=== PATIENT | female | born 1985 | race Caucasian/White ===

== ENCOUNTER 2017-08-26 13:27 | Inpatient (IN) | payer BC, OTHER ==
[~2017-08-26] VITALS: Ht 162.6 cm; Wt 61.0 kg
[~2017-08-26 13:27] MED LIST: ESCITALOPRAM OXALATE 10 MG TAB (LEXAPRO) PO SCH
[2017-08-26] MEDS ORDERED: DEXT10CA5 PO (13:55)
[2017-08-26] MEDS ORDERED: AMBI5TAB PO (13:55)
[2017-08-26] MEDS ORDERED: ADDE1TAB14 PO ×2 (13:55→16:56)
[2017-08-26] MEDS ORDERED: KLON0.5T PO (13:55)
[2017-08-26] MEDS ORDERED: MAALOX 30 ML SUSP *UDC PO PRN (16:00)
[2017-08-26] MEDS ORDERED: traZODone 50 MG TAB PO PRN (16:00)
[2017-08-26] MEDS ORDERED: MOM 30ML SUSPENSION UDC PO PRN (16:00)
[2017-08-26] MEDS ORDERED: IBUP200T45 PO (17:02)
[2017-08-26] MEDS ORDERED: VITA-113 SL (17:02)
[2017-08-26] MEDS ORDERED: VITMTA PO (17:02)
[2017-08-26] MEDS ORDERED: FERR325T3 PO (17:02)
[2017-08-26] MEDS ORDERED: BACITAB PO (17:02)
[2017-08-26] MEDS ORDERED: VITA200028 PO (17:02)
[2017-08-26] MEDS ORDERED: VITA-122 PO (17:02)
[2017-08-26] MEDS ORDERED: FLUO20CA19 PO (17:03)
[2017-08-26 20:00] VITALS: BP 131/69
[2017-08-26] MEDS ORDERED: zolPIDEM TARTRATE 5 MG TAB PO SCH (21:00)
[2017-08-26] MEDS ORDERED: IBUPROFEN 200 MG TAB PO PRN (21:15)
[2017-08-26] MEDS: clonazePAM 0.5 MG TAB PO SCH (22:10)
[2017-08-27 06:51] VITALS: BP 127/62
[2017-08-27] MEDS: LACTOBACILLUS ACIDOPHILUS CAP (BACID) PO SCH (08:06)
[2017-08-27] MEDS: MULTIVITAMINS/MINERALS THERAP 1 TAB PO SCH (08:07)
[2017-08-27] MEDS: CYANOCOBALAMIN 500 MCG TAB PO SCH (08:07)
[2017-08-27] MEDS: VITAMIN D 1,000 INTERNATIONAL UNITS TABLET PO SCH (08:07)
[2017-08-27] MEDS: clonazePAM 0.5 MG TAB PO SCH (08:07)
[2017-08-27] MEDS: FERROUS SULFATE 325MG TAB PO SCH (08:07)
[2017-08-27] MEDS ORDERED: VITAMIN D 1,000 INTERNATIONAL UNITS TABLET PO SCH ×2 (09:00)
[2017-08-27] MEDS ORDERED: FLUoxetine 20 MG CAP PO SCH (09:00)
[2017-08-27] MEDS: hydrOXYzine 50 MG TAB PO PRN (10:51)
[2017-08-27 20:47] VITALS: BP 115/62
[2017-08-27] MEDS ORDERED: traZODone 50 MG TAB PO SCH (21:00)
[2017-08-27 22:28] LABS: BASO % 0.4 % (0.0-1.0); EOS # 0.1 10^3/uL (0.0-0.50); EOS % 0.7 % (0.0-3.0); IMMATURE GRANULOCYTE % 0.1 % (0-0); LYMPH # 2.7 10^3/uL (1.5-4.5); LYMPH % 35.7 % (24.0-44.0); MEAN CORPUSCULAR HEMOGLOBIN 31.9 pg (27.0-33.0); MEAN CORPUSCULAR HGB CONC 34.4 g/dl (32.0-36.5); MEAN CORPUSCULAR VOLUME 92.7 fl (80.0-96.0); MONO # 0.5 10^3/uL (0.0-0.8); MONO % 6.6 % (0.0-5.0); NEUTROPHILS # 4.3 10^3/uL (1.8-7.7); NEUTROPHILS % 56.5 % (36.0-66.0); PLATELET COUNT, AUTOMATED 309 10^3/uL (150-450); RED CELL DISTRIBUTION WIDTH 12.1 % (11.5-14.5); WHITE BLOOD COUNT 7.6 10^3/uL (4.0-10.0)
[2017-08-27] MEDS: CIPROFLOXACIN 500 MG TAB PO SCH (22:36)
[2017-08-27 22:49] LABS: ALBUMIN 4.1 GM/DL (3.2-5.2); ALBUMIN/GLOBULIN RATIO 1.11 (1.00-1.93); ALKALINE PHOSPHATASE 59 U/L (45-117); ALT/SGPT 24 U/L (12-78); ANION GAP 6 MEQ/L (8-16); AST/SGOT 19 U/L (7-37); BILIRUBIN,TOTAL 0.3 MG/DL (0.2-1.0); BLOOD UREA NITROGEN 9 MG/DL (7-18); CALCIUM LEVEL 8.6 MG/DL (8.5-10.1); CARBON DIOXIDE LEVEL 26 MEQ/L (21-32); CHLORIDE LEVEL 106 MEQ/L (98-107); CREATININE FOR GFR 0.61 MG/DL (0.55-1.02); GLOMERULAR FILTRATION RATE > 60.0 (>60); GLUCOSE, FASTING 96 MG/DL (70-105); SODIUM LEVEL 138 MEQ/L (136-145); TOTAL PROTEIN 7.8 GM/DL (6.4-8.2)
[2017-08-28] MEDS: CIPROFLOXACIN 500 MG TAB PO SCH ×2 (06:07→17:15)
[2017-08-28 06:34] VITALS: BP 111/56
[2017-08-28] MEDS: FERROUS SULFATE 325MG TAB PO SCH (08:20)
[2017-08-28] MEDS: CYANOCOBALAMIN 500 MCG TAB PO SCH (08:20)
[2017-08-28] MEDS: FLUoxetine 10 MG CAP PO SCH (08:20)
[2017-08-28] MEDS: MULTIVITAMINS/MINERALS THERAP 1 TAB PO SCH (08:20)
[2017-08-28] MEDS: VITAMIN D 1,000 INTERNATIONAL UNITS TABLET PO SCH (08:20)
[2017-08-28] MEDS: LACTOBACILLUS ACIDOPHILUS CAP (BACID) PO SCH (08:21)
[2017-08-28] MEDS ORDERED: INFLUENZA QUADRIVALENT PF VACCINE 0.5ML SYRINGE (90686) IM ONE (09:00)
[2017-08-28] MEDS: ACETAMINOPHEN TAB 650MG DOSE (2X325MG) PO PRN ×2 (09:10→22:03)
--- NOTE | 2017-08-28 09:25 | MHHPE ---
DATE OF ADMISSION: 08/26/2017 LEGAL STATUS AT ADMISSION: 9.39 legal status. CHIEF COMPLAINT: "I have been feeling depressed and I have suicidal thoughts." HISTORY OF PRESENT ILLNESS: 32-year-old female with history of attention deficit hyperactivity disorder (ADHD), depression, generalized anxiety disorder, and panic disorder admitted to our unit on a 9.39 legal status. According to the record, the patient was transferred from the [facility] following a suicide attempt by overdose on Klonopin. The patient reported "I need help. I suffer from suicidal thoughts." The patient reports that for the past month, she has not been able to redirect her thoughts. She told her that she wanted to before admission, as she thought she could control thoughts. She also states that she is under a lot of stress, especially at work. She makes comments such as "the two dogs were fighting and my yelled, "can you do anything?" The patient says that she felt very worthless and started to think about overdosing. When I thought about this, I immediately had a sense of peace and I thought about my own and taking the Klonopin was so easy, but she stopped taking the medication and decided to get help. The patient also reports that she feels her curing supervisor bullies her. 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 The patient also reports that for a period of time she stored nortriptyline. She said that her psychiatric warned her of the dangers of the medication in case that she attempted. The patient also admits having other suicidal plans like MVA or to stab herself. During the interview today, the patient reports that she has a constant underlying sense of depression, feeling hopeless, worthless and with low self esteem, but her mood fluctuates and at times the depression gets significantly worse. She feels she has low energy, has problems going to sleep and has tendency to isolate. She reports that she has very high anxiety and worry with circular thoughts and cognitive distortions and also has panic attacks. Describes them as tachycardia, palpitations, shortness of breath, and hyperventilation, sweating and feeling dizzy. She says that at times she has two panic episodes a day. During the interview, there is no evidence of psychotic symptoms. No auditory or visual hallucinations or delusions. PAST MEDICAL HISTORY: Patient denies any acute medical problems. ALLERGIES: No known drug allergies. PAST PSYCHIATRIC HISTORY: Patient reports she has been diagnosed to have recurrent depression, generalized anxiety disorder, panic disorder and attention deficit hyperactivity disorder (ADHD) and has taken Adderall 10 mg by mouth twice a day. She also takes Prozac 20 mg by mouth every morning, Klonopin 0.5 mg by mouth three times a day, and Ambien 5 mg by mouth at bedtime. FAMILY HISTORY: Patient reports that her brother has panic disorder. Her sister and father have depression and her mother has depression and anxiety. 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 SOCIAL HISTORY: Patient was raised by both of her parents. Denies any abuse or neglect, but says that her parents were fighting all the time and there was chaos in the family. The patient reports that she was an anxious child and probably having panic attacks because she remembers her mother helping her to breath through a paper back. She just during the summer of this year and reports her support system is mostly her . She says that she has significant problems at her job, which is a source of her depression and anxiety. PSYCHIATRIC REVIEW OF SYSTEMS: BIPOLAR DISORDER/KALEB: No evidence of distractibility, grandiosity, flight of ideas or pressured speech. SUBSTANCE ABUSE: Negative to CAGE questionnaire. SOMATIZATION DISORDER: Screening for pain, conversion, gastrointestinal (GI) and sexual symptoms is negative. EATING DISORDER: Screening for dieting, use of laxatives, eating in binges is negative. COGNITIVE DISORDER: Screening for memory, orientation, and general information is negative for cognitive disorder. PSYCHOTIC DISORDER: No evidence of delusions, paranoia, grandiosity, christianity preoccupation, no hallucinations. No looseness of associations. PHYSICAL EXAMINATION: As per physician's temporary administrative assistant. Labs at admission were not done since the patient was worked up at the [facility]. MENTAL STATUS EXAMINATION: Patient dressed in [facility]. Patient is cooperative. Speech is clear, coherent with normal and is spontaneous. Patient has fair eye contact. Mood is anxious and depressed. Affect is labile. Patient is oriented to time, place, person and situation. Maintains attention and concentration correctly. Instant recall, recent and remote memory are intact. Thought processes are coherent, logical and goal directed. Patient does not have auditory or visual hallucinations. Patient does not have paranoid, persecutory, somatic, grandiose or christianity delusions. Patient reports suicidal thoughts, but not homicidal ideation. Judgment and insight are limited. DIAGNOSIS: [place] I: Major depressive disorder. Generalized anxiety disorder. Panic disorder. Attention deficit hyperactivity disorder (ADHD). [place] II: Deferred. [place] III: None acute. INITIAL TREATMENT PLAN: Patient was admitted on a 9.39 legal status. Complete history was obtained. With her permission, family will be contacted and data base will be expanded. Her medication regime will be reviewed and changed accordingly. She will be provided with a protected environment. She will be treated with individual, group, and milieu therapy. She will also receive supportive psychoeducation. Discharge planning will commence immediately. Length of stay will be between 7 and 10 days. Outpatient followup will be strongly recommended. The treatment plan will focus initially on depression and risk for suicide.
[2017-08-28] MEDS ORDERED: traZODone 50 MG TAB PO PRN (10:30)
--- NOTE | 2017-08-28 12:21 | MHHPE ---
DATE OF ADMISSION: 08/26/2017 Please refer to psychiatric history and evaluation for further details on this admission. This examination is intended for medical issues which may need treatment, followup or consult on this 32-year-old female. ALLERGIES: No known allergy. PRIMARY CARE PROVIDER: She currently has none. SOCIAL HISTORY: She is . She was transferred from [facility] after being stabilizing having overdosed on Klonopin. EtOH occasional, she states a couple times a week. Smokes none. Recreational drug use marijuana. PAST MEDICAL HISTORY: Negative. PAST SURGICAL HISTORY: Elective vacuum . CURRENT MEDICATIONS: - Prozac 20 mg by mouth daily - Adderall 10 mg by mouth twice daily - Klonopin 0.5 mg by mouth three times daily - Ambien 5 mg by mouth daily at bedtime Review of systems was done. She was having frequency. She had been having a low grade to a temperature of 100.1. Otherwise systems review unremarkable. PHYSICAL EXAMINATION: 32-year-old cooperative female in no acute distress. Height 64 inches, weight 59 kg. BMI 22.3. Blood pressure 115/62. Temperature 100.1, heart rate 77, respirations 16. The patient is alert and oriented times three. Pupils equal and reactive to light. Extraocular movements intact. Cornea and sclera clear. Conjunctiva normal. No facial asymmetry. Pharynx, tongue and gums pink and moist. Tongue is midline. Neck is supple, without lymphadenopathy. No thyromegaly. No goiter. Carotids 2+ without bruit. Chest clear to auscultation, without wheeze or retraction. Heart is regular. Abdomen benign. Bowel sounds positive. Genitourinary ()/Rectal: Not done. Extremities show equal strength, full range of motion. No cyanosis, clubbing or edema. Skin is warm and dry. Turgor is good. IMPRESSION AND PLAN: 1. Psychiatric plan per psychiatry. 2. temperature. 3. Get urine screen. CBC, , Cipro 500 mg by mouth twice daily. 4. Followup on culture.
[2017-08-28 18:00] VITALS: BP 126/65
[2017-08-28] MEDS ORDERED: traZODone 100 MG TAB PO SCH (21:00)
--- NOTE | 2017-08-29 04:20 | MHIPN ---
DATE OF SERVICE: 08/28/2017 HISTORY: 32-year-old female with history of depression, generalized anxiety disorder, panic disorder, and attention deficit hyperactivity disorder (ADHD). Patient was admitted after she overdosed on Klonopin. MEDICATIONS: - trazodone 75 mg by mouth nightly - Prozac 30 mg by mouth every morning - Librium 15 mg by mouth three times a day SUBJECTIVE: "I'm feeling about the same." OBJECTIVE: No major changes. Patient continues depressed and anxious. She is able to contract for safety while in the hospital. Patient states that sleep is somewhat better with the help of the trazodone, but she keeps waking up. Patient is minimally interacting with other patients and staff. There is no evidence of psychotic symptoms. MENTAL STATUS EXAMINATION: Patient is dressed in [facility]. Patient is cooperative during exam. Speech is clear, coherent, with normal rate and is spontaneous. Patient has fair eye contact. Mood is anxious and depressed. Affect is restricted. Patient is oriented to time, place, person and situation. Maintains attention and concentration correctly. Instant recall, recent and remote memory are intact. No evidence of auditory or visual hallucinations or delusions. Patient continues with suicidal ideation intermittently. Judgment and insight are limited. DIAGNOSES: [place] I: Depression, generalized anxiety disorder, panic disorder, attention deficit hyperactivity disorder (ADHD). PLAN: 1. Increase trazodone to 100 mg by mouth nightly plus 50 mg as needed for insomnia. 2. Continue fluoxetine 30 mg by mouth every morning. 3. Continue Librium 15 mg by mouth three times a day.
[2017-08-29] MEDS: CIPROFLOXACIN 500 MG TAB PO SCH ×2 (06:07→17:03)
[2017-08-29 06:42] VITALS: BP 116/53
[2017-08-29] MEDS: VITAMIN D 1,000 INTERNATIONAL UNITS TABLET PO SCH (08:25)
[2017-08-29] MEDS: LACTOBACILLUS ACIDOPHILUS CAP (BACID) PO SCH (08:25)
[2017-08-29] MEDS: FERROUS SULFATE 325MG TAB PO SCH (08:25)
[2017-08-29] MEDS: CYANOCOBALAMIN 500 MCG TAB PO SCH (08:25)
[2017-08-29] MEDS: MULTIVITAMINS/MINERALS THERAP 1 TAB PO SCH (08:25)
[2017-08-29] MEDS: FLUoxetine 10 MG CAP PO SCH (08:25)
[2017-08-29] MEDS: hydrOXYzine 50 MG TAB PO PRN ×2 (12:37→21:17)
--- NOTE | 2017-08-29 17:45 | MHIPN ---
DATE: 08/29/2017 HISTORY: 32-year-old female with history of depression, generalized anxiety disorder, panic disorder, and attention deficit hyperactivity disorder. Patient was admitted after she overdosed on Klonopin. MEDICATIONS: - trazodone 100 mg by mouth nightly - Prozac 30 mg by mouth every morning - Librium 15 mg by mouth three times a day, tapering SUBJECTIVE: "I'm feeling a little better." OBJECTIVE: Patient has slightly improved since admission, continues depressed and anxious. Patient was able to contract for safety during the interview. Patient is motivated for treatment and is going to all the psychotherapeutic activities of the unit. No evidence of psychotic symptoms. MENTAL STATUS EXAMINATION: Patient is dressed in [facility]. Patient is cooperative. Her speech is clear, coherent, normal rate, and is spontaneous. Patient has good eye contact. Mood is depressed, but improved. Affect is less restricted. Patient is oriented to time, place, person, and situation. Maintains attention and concentration correctly. Instant recall, recent, and remote memory are intact. Thought processes are coherent, logical, and goal-directed. Patient does not have auditory or visual hallucinations nor delusions. Patient denies suicidal ideation during the interview. Judgment and insight is improved. ASSESSMENT: 1. Depression. 2. Generalized anxiety disorder. 3. Panic disorder. 4. Attention deficit hyperactivity disorder (ADHD). PLAN: 1. Increase trazodone to 125 mg by mouth nightly. 2. Decrease Librium to 15 mg by mouth twice a day. 3. Continue fluoxetine 30 mg by mouth every morning. 4. Continue medication management, individual and group therapy.
[2017-08-29 18:00] VITALS: BP 122/58
[2017-08-29] MEDS: traZODone 50 MG TAB PO SCH (21:17)
[2017-08-30] MEDS: CIPROFLOXACIN 500 MG TAB PO SCH ×2 (05:46→17:13)
[2017-08-30 06:46] VITALS: BP 93/53
[2017-08-30] MEDS: LACTOBACILLUS ACIDOPHILUS CAP (BACID) PO SCH (08:18)
[2017-08-30] MEDS: FLUoxetine 10 MG CAP PO SCH (08:18)
[2017-08-30] MEDS: FERROUS SULFATE 325MG TAB PO SCH (08:18)
[2017-08-30] MEDS: VITAMIN D 1,000 INTERNATIONAL UNITS TABLET PO SCH (08:18)
[2017-08-30] MEDS: CYANOCOBALAMIN 500 MCG TAB PO SCH (08:18)
[2017-08-30] MEDS: MULTIVITAMINS/MINERALS THERAP 1 TAB PO SCH (08:18)
--- NOTE | 2017-08-30 17:39 | MHIPN ---
DATE: 08/30/2017 HISTORY: A 32-year-old female with history of depression, generalized anxiety disorder, panic disorder, and attention deficit hyperactivity disorder (ADHD). The patient was admitted after she overdosed on Klonopin. MEDICATIONS: - trazodone 100 mg by mouth at bedtime - Prozac 30 mg by mouth every morning - Librium 15 mg by mouth three times a day SUBJECTIVE: "I am feeling better." OBJECTIVE: The patient has been improving slowly. The patient is less depressed, is interacting better with other patients and staff. The patient is motivated for treatment. Denies side effects from medication. No evidence of psychotic symptoms. No auditory or visual hallucinations or delusions. The patient denies signs or symptoms of benzodiazepine withdrawal with the current taper of Librium. MENTAL STATUS EXAMINATION: The patient is dressed in [facility]. The patient is cooperative. Speech is clear, coherent with normal rate and is spontaneous. The patient has fair eye contact. Mood is depressed but improved. Affect is less restricted. The patient is oriented to time, place, person, and situation, maintains attention and concentration correctly. Instant recall, recent and remote memory are intact. Thought processes are coherent, logical, and goal-directed. The patient does not have auditory or visual hallucinations. The patient does not have delusions. Insight and judgment are fair. ASSESSMENT: 1. Depression. 2. Generalized anxiety disorder. 3. Panic disorder. 4. Attention deficit hyperactivity disorder (ADHD). PLAN: 1. Continue trazodone 125 mg by mouth at bedtime. 2. Continue Librium 15 mg by mouth twice a day. 3. Continue fluoxetine 30 mg by mouth every morning. 4. Continue medication management, individual and group therapy.
[2017-08-30 18:00] VITALS: BP 125/67
[2017-08-30] MEDS: traZODone 50 MG TAB PO SCH (20:40)
[2017-08-31] MEDS: CIPROFLOXACIN 500 MG TAB PO SCH (05:25)
[2017-08-31 06:00] VITALS: BP 101/50
[2017-08-31] MEDS: CYANOCOBALAMIN 500 MCG TAB PO SCH (08:17)
[2017-08-31] MEDS: VITAMIN D 1,000 INTERNATIONAL UNITS TABLET PO SCH (08:17)
[2017-08-31] MEDS: FERROUS SULFATE 325MG TAB PO SCH (08:17)
[2017-08-31] MEDS: FLUoxetine 10 MG CAP PO SCH (08:17)
[2017-08-31] MEDS: MULTIVITAMINS/MINERALS THERAP 1 TAB PO SCH (08:18)
[2017-08-31] MEDS ORDERED: IBUPROFEN 400 MG TAB PO PRN (08:30)
[2017-08-31] MEDS ORDERED: traZODone 50 MG TAB PO PRN (08:45)
[2017-08-31] MEDS ORDERED: CHLOR5CA PO (08:51)
[2017-08-31] MEDS ORDERED: TRAZO50TA PO (08:51)
[2017-08-31] MEDS ORDERED: CIPR500T3 PO (08:51)
[2017-08-31] MEDS ORDERED: PROZ10CA7 PO (08:51)
[2017-08-31] MEDS: LACTOBACILLUS ACIDOPHILUS CAP (BACID) PO SCH (10:04)
--- NOTE | 2017-08-31 15:32 | MHDS ---
DATE OF ADMISSION: 08/26/2017 DATE OF DISCHARGE: 08/31/2017 LEGAL STATUS ON ADMISSION: 9.39 legal status. HISTORY OF PRESENT ILLNESS: 32-year-old female with history of attention deficit hyperactivity disorder, depression, generalized anxiety disorder, and panic disorder, admitted to our unit on a 9.39 legal status. According to the record, patient was transferred from [facility] following a suicidal attempt by overdose on Klonopin. Patient was stating "I need help" "I suffer from suicidal thoughts" . Patient reports that for the past month she has not been able to redirect her thoughts, she tells her that she wanted to before admission as she thought she could control thoughts. She also stated that she is under a lot of stress especially at work. She makes comments such as "the two dogs were fighting and my yelled can you do something". The patient says that she felt very worthless and stated that started to think about overdosing. Also reported "when I thought about this I immediately had the sense of piece". Also was thinking that taking the Klonopin was so easy, but she stopped taking the medication and decided to get help. She also stated that her grinding supervisor bullies her. 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 Patient also reports that for a period of time she has took nortriptyline. She also reported that her psychiatrist warned her about the dangers of overdosing on this medication. Also admitted having other suicide plans like motor vehicle accident or stab herself. During the interview in our unit patient reports that she has constant underlying sense of depression, feeling hopeless, worthless, and have low self-esteem. Also says that her mood fluctuates and her depression gets significantly worse. She reports low energy, sleep problems and then seems to isolate, high anxiety and worry with circular thoughts and cognitive distortions. She also reports panic attacks. She describes them as having tachycardia, palpitations, shortness of breath, hyperventilation, sweating, and feeling dizzy. She stated that at times has two panic episodes a day. During the interview there is no evidence of psychotic symptoms. No auditory or visual hallucinations or delusions. LABS AT ADMISSION: Her CBC was unremarkable. Her CMP was within normal limits. HOSPITAL COURSE: After the first evaluation given the fact that she was taking Klonopin as outpatient she was placed on Librium 15 mg by mouth three times a day tapering dose, also on Prozac 30 mg by mouth every a.m. and trazodone 50 mg by mouth at bedtime, that had to be increased up to 150 mg to achieve results. With the above medications patient was stabilized. Patient had no complications during this hospital admission. Her moods improved rather quick. By August 31 patient is in a stable condition, patient feels significantly better, patient is denying suicidal or homicidal ideation, patient is denying in terms of depression, no evidence of panic episodes, she is tolerating well the medication so at this point patient does not meet the criteria for involuntary hospitalization. A meeting was held with her parents before discharge, they are supportive. MENTAL STATUS EXAMINATION AT DISCHARGE: The patient is dressed in [facility]. Patient is calm and cooperative. Speech is clear, coherent with normal rate and is spontaneous. Patient has good eye contact. Mood is slightly depressed, but significantly improved from admission. Affect is appropriate and congruent with mood. Patient is oriented to time, place, person and situation. Maintains attention and concentration correctly. Instant recall, recent and remote memory are intact. Thought processes coherent, logical and goal directed. Patient does not have auditory or visual hallucinations. Patient does not have paranoid, persecutory, somatic, grandiose or christianity delusions. Patient denies suicidal or homicidal ideations. Judgment and insight are fair. DISCHARGE DIAGNOSES: [place] I: Major depressive disorder. Generalized anxiety disorder. Panic disorder. Attention deficit hyperactivity disorder (ADHD). [place] II: Deferred. [place] III: None acute. MEDICATIONS AT DISCHARGE: - Librium 15 mg by mouth twice a day times today and then at bedtime times four days - Prozac 30 mg by mouth every a.m. - trazodone 150 mg by mouth at bedtime as needed for insomnia. CONDITION AT DISCHARGE: Stable. No auditory or visual hallucinations. No delusion. No suicidal or homicidal ideations. INSTRUCTIONS TO THE PATIENT: Patient is to continue taking her medications as prescribed and followup appointments. She is advised to maintain absolute sobriety from drugs and alcohol. Patient has scheduled appointment for medication management, individual psychotherapy, and primary care physician.
== END 2017-08-31 15:15 | disposition home or self-care (01) | DRG 754 ==
LOC: M ED 13:27 → M ED INP 15:54 → M PSY 18:50
PROVIDERS: ADMIT Psychiatry & Neurology Psychiatry; ATTEND Psychiatry & Neurology Psychiatry
DX: F32.9 Major depressive disorder, single episode, unspecified (principal); F41.0 Panic disorder [episodic paroxysmal anxiety]; F41.1 Generalized anxiety disorder; F90.9 Attention-deficit hyperactivity disorder, unspecified type; Z81.8 Family history of other mental and behavioral disorders; Z79.899 Other long term (current) drug therapy